=== PATIENT | female | born 1975 | race Caucasian/White ===

== ENCOUNTER 2020-07-09 09:48 | Emergency (ER) | payer OTHER ==
[2020-07-09] MEDS ORDERED: Albuterol 6.7 GM Inhaler INH ONE (11:45)
--- NOTE | 2020-07-09 11:53 | EDM.PDOC ---
ED HPI GENERAL MEDICAL PROBLEM - General Chief Complaint: Respiratory Problem Stated Complaint: SOB Time Seen by Provider: 07/09/20 11:09 Source of Information: Reports: Patient, RN Notes Reviewed History Limitations: Reports: No Limitations - History of Present Illness INITIAL COMMENTS - FREE TEXT/NARRATIVE: Patient is a 45-year-old female who presents to the ED for the evaluation of her ongoing cough and shortness of breath. Patient notes that she was sick roughly 18 days ago, with a sore throat and a headache, and a lot of other Covid-like symptoms. She states that that time she just self quarantine did not test for COVID-19. She is from [place], and just got to [place] on Friday. She noted that last night she was deep cleaning her father's cabin, and she dev eloped a cough, chest tightness with wheezing, and shortness of breath with some postnasal drip last night. She states that a similar thing happened to her roughly 4 years ago when she deep cleaned her house. She went to the ER, got a neb treatment and some steroids and was much better. She has no history of lung disease that she is aware of or is not been diagnosed. She further states no one else in the cabin is sick, or has-like symptoms. She is not had any fevers or chills, nausea/vomiting/diarrhea. Her cough is a very dry tight intermittent cough along with some audible expiratory wheezing. She is not horribly dyspneic on exam. - Related Data Allergies Allergy/AdvReac Type Severity Reaction Status Date / Time No Known Allergies Allergy Verified 07/09/20 09:54 Home Meds: Home Meds Calcium Carb/Vitamin D3/Vit K1 [Calcium + D Soft Chewable Tab] 1 tab PO BID 07/09/20 [History] Cholecalciferol (Vitamin D3) [Vitamin D] 1 tab PO DAILY 07/09/20 [History] Fish Oil/Darden-3 Fatty Acids [Fish Oil 1,000 MG] 1 tab PO DAILY 07/09/20 [History] Glucosam/Chond-MSM 2/C/D3/Juan [Zhojrdocfk-Mquhdmlknau-KXE] 1 tab PO DAILY 07/09/20 [History] Multivitamin [Multivitamins] 1 tab PO DAILY 07/09/20 [History] predniSONE 20 mg PO ASDIRECTED #15 tab 07/09/20 [Rx] Past Medical History Musculoskeletal History: Reports: Arthritis Social & Family History - Tobacco Use Tobacco Use Status *Q: Never Tobacco User Second Hand Smoke Exposure: No - Caffeine Use Caffeine Use: Reports: Coffee - Recreational Drug Use Recreational Drug Use: No ED ROS GENERAL - Review of Systems Review Of Systems: Comprehensive ROS is negative, except as noted in HPI. ED EXAM, GENERAL - Physical Exam Exam: See Below Exam Limited By: No Limitations General Appearance: Alert, WD/WN, No Apparent Distress Respiratory/Chest: No Respiratory Distress, No Accessory Muscle Use, Chest Non- Tender, Decreased Breath Sounds (bilaterally), Wheezing (slight end expiratory wheezing noted) Cardiovascular: Normal Peripheral Pulses, Regular Rate, Rhythm, No Murmur Extremities: Normal Inspection, Normal Capillary Refill Neurological: Alert, Oriented, Normal Cognition, No Motor/Sensory Deficits Psychiatric: Normal Affect, Normal Mood Skin Exam: Warm, Dry, Intact, Normal Color, No Rash Course - Vital Signs Last Recorded V/S: Last Vital Signs Temp 97.6 F 07/09/20 09:55 Pulse 98 07/09/20 09:55 Resp 18 07/09/20 09:55 BP 164/105 H 07/09/20 09:55 Pulse Ox 100 07/09/20 09:55 - Orders/Labs/Meds Orders: Active Orders 24 hr Category Date Time Status RT Post Treatment Assessment [RC] Click to Edit Care 07/09/20 11:46 Ordered RT Pre-Treatment Assessment [RC] Click to Edit Care 07/09/20 11:46 Ordered CORONAVIRUS COVID-19 PCR [facility] Stat Lab 07/09/20 11:46 Ordered Meds: Medications Discontinued Medications Generic Name Dose Route Start Last Admin Trade Name Sandi PRN Reason Stop Dose Admin Albuterol 0 gm 07/09/20 11:45 Proventil Hfa INH 07/09/20 11:46 ONETIME ONE - Re-Assessments/Exams Free Text/Narrative Re-Assessment/Exam: 07/09/20 11:51 Patient presents to the ED for ongoing respiratory illness. I do believe she has some sort of undiagnosed reactive airways disease, but with her symptoms and her being in a house with multiple people we will do a state test for coronavirus and have that sent out. She will get an albuterol inhaler with instructions on a spacer, a course of steroids, and general recommendations will be given. Departure - Departure Time of Disposition: 11:52 Disposition: Home, Self-Care 01 Condition: Good Clinical Impression: Reactive airway disease Qualifiers: Asthma severity: unspecified severity Asthma persistence: unspecified Asthma complication type: uncomplicated Qualified Code(s): J45.909 - Unspecified asthma, uncomplicated - Discharge Information *PRESCRIPTION DRUG MONITORING PROGRAM REVIEWED*: No *COPY OF PRESCRIPTION DRUG MONITORING REPORT IN PATIENT [place]: No Prescriptions: predniSONE 20 mg PO ASDIRECTED #15 tab Instructions: Bronchospasm, Adult, How to Use a Metered Dose Inhaler Referrals: PCP,Not In Area [Primary Care Provider] - Additional Instructions: You were seen in the ER today for ongoing and/or worsening respiratory symptoms. Your oxygen levels were great at 99-100% on room air. It is very likely that your symptoms are from a undiagnosed reactive airways disease. You were given a albuterol inhaler in the ER, with instructions on how to use this, please use 2 puffs every 4 hours or 4 times a day as needed for further wheezing/cough. You are also given a prescription for prednisone, please use until gone as directed. At this time we did test you for COVID-19. We ask that you self-quarantine and limit your exposure to others until you receive your results from the state. You have been given a work note to reflect this. Swabs are sent from this facility on a daily basis, at 2:30 PM, you should expect up to 3-5 business days for positive or negative results. However you may receive results earlier than this. We are doing our best to call as soon as we get results from the [place] dept. of Health. Please try to increase your oral fluid intake, and eat multiple small meals throughout the day, to keep yourself healthy. You need to keep yourself nourished in order to fight off this disease. You can try a liquid diet like gatorade/powerade as well to get your electrolytes. You may take 500 mg Tylenol every hours 6 hours for pain/fever relief. Do not exceed 4000 mg Tylenol in a 24-hour time span. However, running a fever is your body's natural response to illness, and it allows the body to develop antibodies to disease, we are recommending trying to limit the use of Tylenol as much as possible to allow your body's natural immune response. Sepsis Event Note (ED) - Evaluation Sepsis Screening Result: No Definite Risk - Focused Exam Vital Signs: Vital Signs Temp Pulse Resp BP Pulse Ox 07/09/20 09:55 97.6 F 98 18 164/105 H 100 - My Orders Last 24 Hours: My Active Orders 07/09/20 11:46 RT Post Treatment Assessment [RC] Click to Edit RT Pre-Treatment Assessment [RC] Click to Edit CORONAVIRUS COVID-19 PCR [facility] Stat - Assessment/Plan Last 24 Hours: My Active Orders 07/09/20 11:46 RT Post Treatment Assessment [RC] Click to Edit RT Pre-Treatment Assessment [RC] Click to Edit CORONAVIRUS COVID-19 PCR [facility] Stat
== END 2020-07-09 13:11 | disposition home or self-care (01) ==
LOC: JD.ED 09:48
DX: J45.909 Unspecified asthma, uncomplicated (principal); Z20.828 Contact with and (suspected) exposure to other viral communicable diseases
CPT/HCPCS: 87635; 99285; A9270; 99283; U0002